=== PATIENT | male | born 1945 | race Caucasian/White ===

== ENCOUNTER 2020-07-25 12:53 | Emergency (ER) | payer MEDICARE, OTHER, SELFPAY ==
[2020-07-25 13:05] VITALS: BP 140/59; PULSE 80; RESP 18; TEMP 36.7; O2SAT 98
--- NOTE | 2020-07-25 13:05 | ED.URI ---
HPI - URI/Sore Throat General Chief Complaint: Upper Respiratory Infection Stated Complaint: Chest cold Time Seen by Provider: 07/25/20 13:05 Source: patient and RN notes reviewed History of Present Illness HPI Narrative: Patient is a 74-year-old male who presents the urgent care with complaints of chest cold . Patient states he has a cough and nasal congestion. States that it started approximately 2 weeks ago and he has been using Mucinex and Afrin spray. 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 Patient states that he uses it several times per day. Denies of any fever, shortness of breath, nausea, vomiting. Denies of any history of pneumonia. Patient states that he typically will go [place] the border to [place] and obtain his own [place] when he is symptomatic for sinusitis . Patient is from [place] and states it is only 18 miles from his home. Patient denies of any known exposure to COVID. No other acute complaints. No acute distress noted. Patient aware of the plan of care. Some parts of this dictation were generated by voice recognition software and may contain typographical and/or grammatical inaccuracies. Related Data Allergies Allergy/AdvReac Type Severity Reaction Status Date / Time No Known Allergies Allergy Verified 07/25/20 13:15 Review of Systems Review of Systems: Narrative: CONSTITUTIONAL: Denies fever, chills, or sweats. EYES: Denies visual changes, redness, or discharge. ENT: Reports of acute on chronic rhinorrhea and nasal congestion CARDIOVASCULAR: Denies chest pain, palpitations, or edema. RESPIRATORY: Reports of nonproductive cough without dyspnea GASTROINTESTINAL: Denies abdominal pain, nausea, vomiting, or diarrhea. GENITOURINARY: Denies dysuria or hematuria. SKIN: Denies rash or itching. MUSCULOSKELETAL: Denies back pain, joint pain, or myalgia. NEUROLOGIC: Denies headache, numbness, or weakness. All other systems reviewed are negative, except as documented in HPI. PMFSH Comments At the time of my signature, I reviewed and agree with the nursing past medical, surgical, social, and family history. There is no relevant family history pertinent to the patient complaint. Exam Narrative: Exam Narrative: GENERAL: This is a well-nourished, well-developed patient, in no apparent distress. HEAD: normocephalic, atraumatic. EYES: PERRL. Sclera clear/white. Vision is grossly intact. EARS: External ears normal, auditory canals clear and without drainage, TMs normal without perforation. Hearing grossly intact. NOSE: External nose normal with no obvious nasal discharge, moderately erythemic and edematous nasal polyps, clear rhinnorhea THROAT: Mucous membranes moist, posterior pharynx clear. Mild postnasal drainage NECK: Neck supple, CARDIOVASCULAR: Regular rate and rhythm without murmurs, gallops, or rubs. RESPIRATORY: Clear to auscultation. Breath sounds equal bilaterally. No wheezes, rales, or rhonchi. SKIN: warm, intact with no suspicious lesions or rash, good texture and turgor. NEURO: awake, alert, and oriented to person, place and time. There were no obvious focal neurologic abnormalities. EXTREMITIES: No clubbing, cyanosis, or edema. Course Vital Signs Vital signs: Vital Signs Temperature 98.1 F 07/25/20 13:05 Pulse Rate 80 07/25/20 13:05 Respiratory Rate 18 07/25/20 13:05 Blood Pressure 140/59 L 07/25/20 13:05 Pulse Oximetry 98 07/25/20 13:05 Temperature 98.1 F 07/25/20 13:05 Pulse Rate 80 07/25/20 13:05 Respiratory Rate 18 07/25/20 13:05 Blood Pressure 140/59 L 07/25/20 13:05 Pulse Oximetry 98 07/25/20 13:05 Reviewed MDM - URI/Sore Throat MDM Narrative Medical decision making narrative: Advised the patient to complete steroid regimen as prescribed. Try to refrain from overuse of Afrin spray. Use normal saline nasal spray and Flonase intermittently as needed. Increase water intake and make sure to eat and
== END 2020-07-25 13:25 | disposition home or self-care (01) ==
PROVIDERS: Emergency Provider Nurse Practitioner Family
DX: J31.0 Chronic rhinitis (principal); J32.9 Chronic sinusitis, unspecified
CPT/HCPCS: 99203; G0463

== ENCOUNTER 2022-07-05 15:07 | Emergency (ER) | payer MEDICARE, OTHER, SELFPAY ==
--- NOTE | ~2022-07-05 | XR_ITS ---
EXAMINATION: XR chest 2V DATE: 07/05/2022 15:28 INDICATION: Cough. TECHNIQUE: Frontal and lateral views of the chest were obtained. COMPARISON: None. FINDINGS: There is a right hilar mass. There is mild scarring at the lung apices. No pleural effusion or pneumothorax. The heart size is normal. There is mild chronic anterior wedging of multiple thorac ic vertebral bodies. IMPRESSION: 1. 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 Chest CT with contrast is recommen ded. I called this result to Aislinn Santos. Reviewed, dictated and finalized at location A. IMPRESSION: 1. 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 Chest CT wit h contrast is recommended. I called this result to Aislinn Santos.
[2022-07-05 15:13] VITALS: BP 97/66; PULSE 75; RESP 16; TEMP 36.3; O2SAT 98
--- NOTE | 2022-07-05 15:19 | ED.URI ---
HPI - URI/Sore Throat General Chief Complaint: Upper Respiratory Infection Stated Complaint: uri Time Seen by Provider: 07/05/22 15:19 Source: patient and RN notes reviewed Mode of arrival: ambulatory Limitations: no limitations History of Present Illness HPI Narrative: 76 y/o male presented for c/o cough for 3 weeks. At onset he had 'cold symptoms,' and endorses the cough is 'letting up' the past few days, however he took a 4 hour nap today and does not usually take naps. Endorses decreased PO intake for the past few days. Taking Delsym for symptoms. Denies sob, wheezing, hemoptysis, vomiting, fever or chills. MD elicited complaint: cough Related Data Home Medications Medication Instructions Recorded Confirmed pantoprazole 40 mg tablet,delayed 40 mg PO QAM 07/05/22 07/05/22 release tamsulosin 0.4 mg capsule 0.4 mg PO DAILY 07/05/22 07/05/22 Allergies Allergy/AdvReac Type Severity Reaction Status Date / Time No Known Allergies Allergy Verified 07/25/20 13:15 Review of Systems Review of Systems: CONSTITUTIONAL: denies chills, sweats, fever EYES: Denies visual changes, redness, or discharge ENT: denies rhinorrhea, congestion, sinus pain, otalgia, sore throat CARDIOVASCULAR: Denies chest pain, palpitations, edema RESPIRATORY: Reports cough Denies dyspnea GASTROINTESTINAL: Denies abdominal pain, nausea, vomiting, diarrhea SKIN: Denies rash or itching MUSCULOSKELETAL: denies myalgia NEUROLOGIC: Denies headache Exam Narrative: GENERAL: well-appearing EYES: conjunctivae clear ENT: Mucous membranes moist. TMs pearly steven with dull light reflex bilaterally; no tragal tenderness. Oropharynx erythematous without lesions or exudate, no drooling, no hoarseness, no trismus, uvula midline. CHEST: Clear to auscultation, breath sounds equal. No wheezing, rhonchi, rales, or stridor. No respiratory distress, speaks in full sentences. HEART: Regular rate and rhythm. No murmur heard. SKIN: Warm, dry, no rash. NEURO: Alert and oriented x3. PSYCH: Normal mood and affect Course Course Emergency Course: Patient is aware of diagnosis, understands and agrees to treatment plan. Anticipatory guidance given. Patient agrees to follow-up as directed and is aware of reasons to seek care at the emergency department. Portions of this record may have been created with voice recognition software Level of Care: Express Care Visit Vital Signs Vital signs: Vital Signs Temperature 97.3 F L 07/05/22 15:13 Pulse Rate 75 07/05/22 15:13 Respiratory Rate 16 07/05/22 15:13 Blood Pressure 97/66 L 07/05/22 15:13 Pulse Oximetry 98 07/05/22 15:13 Oxygen Delivery Room Air 07/05/22 15:13 Temperature 97.3 F L 07/05/22 15:13 Pulse Rate 75 07/05/22 15:13 Respiratory Rate 16 07/05/22 15:13 Blood Pressure 97/66 L 07/05/22 15:13 Pulse Oximetry 98 07/05/22 15:13 Oxygen Delivery Room Air 07/05/22 15:13 reviewed MDM - URI/Sore Throat MDM Narrative Medical decision making narrative: Result of chest x-ray reviewed with patient. Discussed at length the importance of following up with primary care provider regarding the abnormal chest xray and the need for f/u CT scan. He plans to call Friday. Rx abx and steroid at this time. Discussed low BP, states he has not eaten/drank much the past few days. Advised supportive measures and signs/symptoms to go to the ER. Pt is appropriate for outpt treatment and f/u. Differential Diagnosis Differential diagnosis: Likely upper respiratory infection, sinusitis, viral infection, bronchitis and other (pneumonia, carcinoma) Imaging Data Radiologist's impression: Patient: Jam Mix : 1945 MR#: [id number] Age/Sex: 76 / M Acct:[id number] Loc: [facility]? ? ADM Date: 07/05/22Attending Dr: Ordering Physician: Aislinn Santos APRN Date of Service: 07/05/22 Procedure(s): XR chest 2V Accession Number(s): [id number] cc: Aislinn Santos APRN; Cindy, N
== END 2022-07-05 16:04 | disposition home or self-care (01) ==
PROVIDERS: Emergency Provider Nurse Practitioner Family; PCP Internal Medicine
DX: R05.9 Cough, unspecified (principal); R91.8 Other nonspecific abnormal finding of lung field
CPT/HCPCS: 71046; 99213; G0463

== ENCOUNTER 2022-07-29 15:01 | Emergency (ER) | payer MEDICARE, SELFPAY ==
--- NOTE | ~2022-07-29 | XR_ITS ---
EXAMINATION: XR chest 2V DATE: 07/29/2022 16:20 INDICATION: Hilar mass in the lungs. Cough congestion. TECHNIQUE: Frontal and lateral views of the chest were obtained. COMPARISON: Chest 2 views 07/05/2022 FINDINGS: There is mild scarring at the lung apices. No pleural effusion or pneumothorax. The heart s ize is normal. There is mild chronic anterior wedging of multiple thoracic vertebral bodies. IMPRESSION: 1. Right hilar mass not visualized. 2. Stable mild scarring at the lung apices. Reviewed, dictated and finalized at location B.
[2022-07-29 15:09] VITALS: BP 149/66; PULSE 79; RESP 20; TEMP 36.7; O2SAT 98
--- NOTE | 2022-07-29 15:55 | ED.URI ---
HPI - URI/Sore Throat General Chief Complaint: Upper Respiratory Infection Stated Complaint: Chest Congestion/Sore Throat Time Seen by Provider: 07/29/22 15:55 Source: patient Mode of arrival: ambulatory Limitations: no limitations History of Present Illness HPI Narrative: 77 y/o male presented for c/o sinus congestion, cough and wheezing worsening for 3 days. Patient was treated 07/05/22 for similar complaints with steroid and abx. CXR at that time showed right hilar mass suspicious for primary bronchogenic carcinoma. He did follow-up with a chest CT and has a PET scan in 2 days. Currently denies hemoptysis, shortness of breath, nausea, vomiting, fevers or chills. Related Data Home Medications Medication Instructions Recorded Confirmed pantoprazole 40 mg tablet,delayed 40 mg PO QAM 07/05/22 07/29/22 release tamsulosin 0.4 mg capsule 0.4 mg PO DAILY 07/05/22 07/29/22 Allergies Allergy/AdvReac Type Severity Reaction Status Date / Time No Known Allergies Allergy Verified 07/29/22 15:20 Review of Systems Review of Systems: CONSTITUTIONAL: Denies body aches, fever, chills, or sweats. EYES: Denies visual changes, redness, or discharge. ENT: Denies sore throat, or otalgia. CARDIOVASCULAR: Denies chest pain, palpitations, or edema. RESPIRATORY: Reports cough, sob, wheezing. GASTROINTESTINAL: Denies abdominal pain, nausea, vomiting, or diarrhea. GENITOURINARY: Denies dysuria or hematuria. SKIN: Denies rash, itching, or wounds. MUSCULOSKELETAL: Denies back pain, joint pain, or myalgia. NEUROLOGIC: Denies headache, numbness, tingling, or weakness. PSYCH: Denies depression or anxiety. All systems reviewed & are unremarkable except as noted in HPI and below PMFSH Comments At time of signature, I have reviewed and agree with nursing past medical, surgical, social and family history unless otherwise noted. Please see nursing chart for further information. There is no relevant family history pertinent to the presenting complaint Exam Narrative: GENERAL: Well-appearing, in no acute distress. EYES: EOMI. No redness or drainage. Conjunctivae normal. ENT: Mucous membranes pink and moist. No rhinorrhea. TMs normal bilaterally. Throat normal. Uvula midline. NECK: Normal AROM. Supple. CHEST: No respiratory distress. Right lower lobe diminished. No wheezing or rhonchi HEART: Regular rate and rhythm. No murmur appreciated. ABDOMEN: Soft, nontender, nondistended, normal active bowel sounds. EXTREMITIES: Normal range of motion. No edema. SKIN: Warm, dry, no rash. Capillary refill normal. Normal skin turgor. NEURO: Alert and oriented x3. Gait steady. Course Course Emergency Course: Patient is aware of diagnosis, understands and agrees to treatment plan. Anticipatory guidance given. Patient agrees to follow-up as directed and is aware of reasons to seek care at the emergency department. Portions of this record may have been created with voice recognition software Level of Care: Express Care Visit Vital Signs Vital signs: Vital Signs Temperature 98.1 F 07/29/22 15:09 Pulse Rate 79 07/29/22 15:09 Respiratory Rate 20 07/29/22 15:09 Blood Pressure 149/66 H 07/29/22 15:09 Pulse Oximetry 98 07/29/22 15:09 Oxygen Delivery Room Air 07/29/22 15:09 Temperature 98.1 F 07/29/22 15:09 Pulse Rate 79 07/29/22 15:09 Respiratory Rate 20 07/29/22 15:09 Blood Pressure 149/66 H 07/29/22 15:09 Pulse Oximetry 98 07/29/22 15:09 Oxygen Delivery Room Air 07/29/22 15:09 MDM - URI/Sore Throat MDM Narrative Medical decision making narrative: Result of xray reviewed with pt. advised supportive measures and signs/symptoms to go to the ER. Pt is appropriate for outpt treatment and f/u. Differential Diagnosis Differential diagnosis: Likely upper respiratory infection, sinusitis, viral infection and influenza Imaging Data Radiologist's impression: Patient: Jam Mix :
== END 2022-07-29 16:35 | disposition home or self-care (01) ==
PROVIDERS: Emergency Provider Nurse Practitioner Family; PCP Internal Medicine
DX: J06.9 Acute upper respiratory infection, unspecified (principal); K21.9 Gastro-esophageal reflux disease without esophagitis; N40.0 Benign prostatic hyperplasia without lower urinary tract symptoms
CPT/HCPCS: 71046; 99213; G0463

== ENCOUNTER 2023-07-29 13:33 | Emergency (ER) | payer MEDICARE, SELFPAY ==
[2023-07-29 13:42] VITALS: BP 140/65; PULSE 79; RESP 20; TEMP 36.6; O2SAT 96
--- NOTE | 2023-07-29 14:14 | ED.GENADULT ---
HPI - General Adult General Chief complaint: Dizziness Stated complaint: Dizziness Time Seen by Provider: 07/29/23 14:14 Source: patient, RN notes reviewed and old records reviewed Mode of arrival: ambulatory Limitations: no limitations History of Present Illness HPI narrative: 78 year old male who [facility] with complaints of having some diarrhea, nausea and abdominal cramping on Friday. Patient states that he has had a productive cough for one week duration and he feels off balanced kind of dizzy at times Patient reports that he went to work out and he felt some weakness. Patient denies any more feelings of nausea or any more diarrhea. Patient reports that he doesn't have any sore throat or any ear pain, feels a little stuffy. Patient refuses flu and COVID tests states that he just needs an antibiotic and that OTC stuff just doesn't work MD complaint: dizziness cough and some weakness Onset (ago): day(s) (2) Treatments prior to arrival: none Related Data Home Medications Medication Instructions Recorded Confirmed pantoprazole 40 mg tablet,delayed 40 mg PO QAM 07/05/22 07/29/23 release tamsulosin 0.4 mg capsule 0.4 mg PO DAILY 07/05/22 07/29/23 Allergies Allergy/AdvReac Type Severity Reaction Status Date / Time No Known Allergies Allergy Verified 07/29/23 13:54 Review of Systems Review of Systems: CONSTITUTIONAL: Denies fever, chills, or sweats. EYES: Denies visual changes, redness, or discharge. ENT: Reports rhinorrhea, congestion,no sore throat, or otalgia. CARDIOVASCULAR: Denies chest pain, palpitations, or edema. RESPIRATORY:Reports cough denies dyspnea. GASTROINTESTINAL: Denies abdominal pain, no present nausea, vomiting, or diarrhea. GENITOURINARY: Denies dysuria or hematuria. SKIN: Denies rash or itching. MUSCULOSKELETAL: Denies back pain, joint pain, or myalgia. NEUROLOGIC: Denies headache, numbness, states some intermittent dizziness and feel weak PSYCHIATRIC: Denies anxiety or depression. All systems reviewed & are unremarkable except as noted in HPI and below PMFSH Past Medical History Medical History (Updated 07/31/23 @ 13:07 by Regina Bui NP) Right forearm fracture required surgical repair Surgical History Surgical History (Updated 07/31/23 @ 13:05 by Regina Bui NP) H/O bilateral inguinal hernia repair Social History Social History (Updated 07/31/23 @ 13:05 by Regina Bui NP) Smoking packs per day: 1 Smoking cigarettes per day: 20.0 Years smoked: 40 Smoking pack-years: 40.00 Smoking status: Former smoker Tobacco type: cigarettes Alcohol intake: unknown Substance use: unknown Gender identity (if verbalized by the patient): Male Comments At time of signature, agree with nursing past medical, surgical, social and family history. There is no relevant family history pertinent to the presenting complaint Exam Narrative: GENERAL: Well-appearing, well-nourished, and in no acute distress. HEAD: Normocephalic, atraumatic. EYES: PERRLA and EOMI. ENT: Nares clear,clear rhinorrhea no epistaxis. Mucous membranes moist.TM's normal with dull light reflex, throat pink with no swelling NECK: Supple. no lymphadenopathy CHEST: Clear to auscultation. No respiratory distress.reports productive cough HEART: Regular rate and rhythm. No murmur heard. Normal peripheral pulses. ABDOMEN: Soft, nontender, nondistended, normal active bowel sounds.denies any present nausea, vomiting or diarrhea EXTREMITIES: Normal range of motion. No edema. SKIN: Warm, dry, no rash. NEURO: No focal deficits. Alert and oriented x3. Course Course Emergency Course: Patient is aware of diagnosis, understands and agrees to treatment plan.? Anticipatory guidance given.? Patient agrees to follow-up as directed and is aware of reasons to seek care at the emergency department. Portions of this record may have been created with voice recognition software Level of Care
== END 2023-07-29 14:32 | disposition home or self-care (01) ==
PROVIDERS: Emergency Provider Registered Nurse
DX: J06.9 Acute upper respiratory infection, unspecified (principal); H69.83 Other specified disorders of Eustachian tube, bilateral; Z87.891 Personal history of nicotine dependence
CPT/HCPCS: 99213; G0463